=== PATIENT | female | born 1965 | race Caucasian/White ===

== ENCOUNTER 2019-10-25 15:16 | Emergency (ER) | payer OTHER ==
[2019-10-25 17:12] LABS: Influenza A Molecular Negative (Negative); Influenza B Molecular Negative (Negative)
[2019-10-25] MEDS ORDERED: Ondansetron ODT TAB* 4 MG PO ONE (18:07)
[2019-10-25] MEDS ORDERED: Acetaminophen TAB* 325 MG PO ONE (18:08)
--- NOTE | 2019-10-25 18:30 | UC ---
FLU HPI - HPI Summary HPI Summary: 2 DAYS OF HEADACHE, COUGH, CHILLS, FATIGUE, NAUSEA, SINUS PRESSURE/PAIN AND NASAL DRAINAGE. - History of Current Complaint Chief Complaint: UCGeneralIllness Stated Complaint: HEADACHE, COUGH Time Seen by Provider: 10/25/19 17:29 Hx Obtained From: Patient Onset/Duration: Gradual Onset, Lasting Days, Still Present Severity Currently: Moderate Severity Initially: Moderate Pain Intensity: 8 Pain Scale Used: 0-10 Numeric Associated Signs & Symptoms: Positive: Fever, Cough, Nasal Congestion, Headache - Allergy/Home Medications Allergies/Adverse Reactions: Allergies Allergy/AdvReac Type Severity Reaction Status Date / Time magnesium citrate Allergy Nausea And Verified 10/25/19 16:27 Vomiting Sulfa (Sulfonamide Allergy Nausea And Verified 10/25/19 16:27 Antibiotics) Vomiting Home Medications: Home Medications Amoxicillin/Clavulanate TAB* [Augmentin TAB 875*] 875 mg PO BID #20 tab [Rx] Benzonatate 1 dose PO ONCE PRN 10/25/19 [History Confirmed 10/25/19] Benzonatate CAP* [Tessalon CAP*] 1 - 2 cap PO TID PRN #30 cap 10/25/19 [Rx] Eucalyptus/Menthol [Cough Drops] 1 tab PO ONCE PRN 10/25/19 [History Confirmed 10/25/19] Ondansetron ODT TAB* [Zofran Odt TAB*] 4 mg PO Q6H PRN #20 tab.odt 10/25/19 [Rx] Zolpidem Tartrate [Zolpidem Tartrate ER] 1 tab PO QPM 10/25/19 [History Confirmed 10/25/19] PMH/Surg Hx/FS Hx/Imm Hx Previously Healthy: Yes - Surgical History Surgical History: Yes Surgery Procedure, Year, and Place: ectopic - Family History Known Family History: Positive: Non-Contributory - Social History Alcohol Use: Daily Alcohol Amount: 1 glass/day Substance Use Type: None Smoking Status (MU): Never Smoked Tobacco Review of Systems All Other Systems Reviewed And Are Negative: Yes Constitutional: Positive: Fever, Chills, Fatigue ENT: Positive: Nasal Discharge, Sinus Congestion, Sinus Pain/Tenderness Respiratory: Positive: Cough Cardiovascular: Positive: Palpitations Gastrointestinal: Positive: Nausea Genitourinary: Positive: Negative Neurological/Mental Status: Positive: Headache Physical Exam Triage Information Reviewed: Yes Appearance: Well-Nourished, Ill-Appearing - FATIGUED, Pain Distress - MILD Vital Signs: Initial Vital Signs Temp 100.8 F 10/25/19 16:21 Pulse 84 10/25/19 16:21 Resp 18 10/25/19 16:21 BP 135/83 10/25/19 16:21 Pulse Ox 96 10/25/19 16:21 Laboratory Tests 10/25/19 17:01 Influenza A (Rapid) Negative Influenza B (Rapid) Negative Vital Signs Reviewed: Yes Eyes: Positive: Conjunctiva Clear ENT: Positive: Hearing grossly normal, Pharynx normal, TMs normal, Sinus tenderness Neck: Positive: Supple, Nontender, No Lymphadenopathy Respiratory Exam: Normal Cardiovascular Exam: Normal Abdomen Description: Positive: Soft Musculoskeletal: Positive: No Edema Neurological: Positive: Alert Psychological: Positive: Age Appropriate Behavior Skin: Negative: Rashes Diagnostics - Radiology CT HEAD W/O CONTRAST Radiology Interpretation Completed By: Radiologist Summary of Radiographic Findings: No acute intracranial abnormality. Flu Course/Dx - Course Course Of Treatment: PATIENT COMES IN WITH FEVER, SINUS PRESSURE, SORE THROAT, COUGH AND SEVERE HEADACHE. FLU SWAB NEGATIVE. DUE TO REPORTED SEVERITY OF PATIENT'S HEADACHE CT HEAD WAS OBTAINED AND UNREMARKABLE. DISCUSSED TRANSFER TO THE ER FOR FURTHER EVALUATION AND MONITORING BUT PATIENT DECLINES. WILL TREAT FOR ACUTE BACTERIAL RHINOSINUSITIS WITH AUGMENTIN TWICE DAILY FOR 10 DAYS. ZOFRAN FOR NAUSEA. ADVISED TO GO TO THE ER WITHOUT FAIL IF HER SYMPTOMS WORSEN. - Differential Dx/Diagnosis Provider Diagnosis: Acute bacterial rhinosinusitis Discharge ED - Sign-Out/Discharge Documenting (check all that apply): Patient Departure All imaging exams completed and their final reports reviewed: Yes - Discharge Plan Condition: Stable Disposition: HOME Prescriptions: Amoxicillin/Clavulanate TAB* [Augmentin TAB 875*] 875 mg PO BID #20 tab Benzonatate CAP* [Tessalon CAP*] 1 - 2 cap PO TID PRN #30 cap PRN Reason: Cough Ondansetron ODT TAB* [Zofran Odt TAB*] 4 mg PO Q6H PRN #20 tab.odt PRN Reason: Nausea/Vomiting Patient Education Materials: Rhinosinusitis (ED) Forms: *Work Release Referrals: Wawrzusin,Naveen, AUTOMOTIVE PROFESSIONAL [Primary Care Provider] - 3 Days Additional Instructions: GIVEN YOUR PRESENTATION WITH HEADACHE, FEVER, NASAL CONGESTION/DISCHARGE, COUGH AND SINUS PAIN/PRESSURE/TENDERNESS I SUSPECT YOU HAVE ACUTE BACTERIAL RHINOSINUSITIS. WILL COVER WITH AUGMENTIN TWICE DAILY FOR 10 DAYS. ZOFRAN FOR NAUSEA. WE DISCUSSED THE CONCERN FOR AN ACUTE INTRACRANIAL ABNORMALITY. CT SCAN OF THE HEAD TODAY WAS UNREMARKABLE. YOU HAVE DECLINED TRANSFER TO THE ER AT THIS TIME IN FAVOR OF ANTIBIOTIC MANAGEMENT AND CAREFUL OBSERVATION AT HOME. GO TO THE ED WITHOUT FAIL IF YOU DEVELOP WORSENING PAIN, UNEQUAL PUPILS, VISUAL DISTURBANCE, GAIT INSTABILITY, SPEECH DIFFICULTY, NAUSEA/VOMITING, WORSENING HEADACHE, DIZZINESS, CONFUSION, WEAKNESS OR ANY OTHER CONCERNING SYMPTOMS. ACUTE RHINOSINUSITIS It is generally not possible to distinguish viral from bacterial acute rhinosinusitis (ARS) in the first 10 days of illness. Acute bacterial rhinosinusitis (ABRS) should be suspected in patients presenting with any of the following three features: 1) persistent symptoms or signs of ARS lasting 10 or more days with no clinical improvement; 2) onset with severe symptoms (fever >39C or 102F and purulent nasal discharge or facial pain) lasting at least three consecutive days at the beginning of illness; 3) onset with worsening symptoms following a viral upper respiratory infection that lasted five to six days and was initially improving. Management of acute viral rhinosinusitis (AVRS) aims to relieve symptoms of nasal obstruction and rhinorrhea; treatment for ABRS includes antibiotics to eliminate the infection and prevent complications. AVRS is expected to resolve within 10 days; ABRS may also resolve spontaneously within the first 10 days. Patients who present with fewer than 10 days of symptoms, in the absence of high fever or symptoms suggesting complicated illness, should be managed with supportive care - mild analgesics, saline nasal irrigation, and fluid. Consider treatment with intranasal glucocorticoids. Decongestants may be useful when eustachian tube dysfunction is a factor for patients with AVRS, but are not likely to be helpful for patients with ABRS. - Billing Disposition and Condition Condition: STABLE Disposition: Home
[2019-10-25 19:20] VITALS: BP 139/70
== END 2019-10-25 19:35 | disposition home or self-care (01) ==
LOC: UCEAST 15:16
DX: J01.80 Other acute sinusitis (principal); B96.89 Other specified bacterial agents as the cause of diseases classified elsewhere; R00.2 Palpitations; R11.0 Nausea; Z88.2 Allergy status to sulfonamides; Z88.8 Allergy status to other drugs, medicaments and biological substances
CPT/HCPCS: 70450; 99202; A9270-GY; G0463